=== PATIENT | female | born 1950 | race Caucasian/White ===

== ENCOUNTER → 2017-02-12 | Outpatient (REF) | payer MEDICARE, OTHER ==
[2017-02-12 19:34] LABS: VITAMIN B12 LEVEL 1608 PG/ML
[2017-02-12 19:35] LABS: FOLATE 23.1 NG/ML
[2017-02-12 20:02] LABS: PERCENT SATURATION 41.1 % (13.2-37.4); TOTAL IRON BINDING CAPACITY 185 UG/DL (250-450); TOTAL PROTEIN 6.5 GM/DL (6.4-8.2)
[2017-02-14 11:01] LABS: ALBUMIN % 45.3 % (55.8-66.1)
[2017-02-14 11:02] LABS: ALBUMIN 2.94 GM/DL (3.29-5.55)
== END ==
LOC: M LAB REF 17:33
PROVIDERS: ATTEND Internal Medicine
DX: D64.9 Anemia, unspecified (principal)

== ENCOUNTER → 2017-03-20 | Outpatient (REF) | payer MEDICARE, OTHER ==
[2017-03-20 14:31] LABS: IMMUNOGLOBULIN G 1130 MG/DL (681-1648); IMMUNOGLOBULIN M 186 MG/DL (40-230); TOTAL PROTEIN 6.8 GM/DL (6.4-8.2)
[2017-03-21 13:20] LABS: ALBUMIN 3.94 GM/DL (3.29-5.55); ALBUMIN % 57.9 % (55.8-66.1); GAMMA GLOBULIN % 16.6 % (11.1-18.8)
[2017-03-22 00:06] LABS: BETA 2 MICROGLOBULIN 1.6 mg/L (0.6-2.4); FREE KAPPA LIGHT CHAINS SERUM 19.9 mg/L (3.3-19.4); FREE LAMBDA LIGHT CHAINS SERUM 30.7 mg/L (5.7-26.3); KAPPA/LAMBDA RATIO SERUM 0.65 (0.26-1.65)
== END ==
LOC: M LAB REF 09:05
PROVIDERS: ATTEND Internal Medicine Medical Oncology
DX: D64.9 Anemia, unspecified (principal); D47.2 Monoclonal gammopathy

== ENCOUNTER → 2017-03-29 | Outpatient (CLI) | payer MEDICARE, OTHER ==
--- NOTE | 2017-03-29 12:48 | REP ---
SKELETAL SURVEY: 15 views. HISTORY: Anemia. FINDINGS: AP and lateral views of the skull demonstrate an intact bony calvarium. Bony orbital margins are intact. Visualized paranasal sinuses are clear. Lateral and AP cervical spine views show degenerative spondylosis. No bony destructive lesion or collapse is seen. The degenerative disc disease is present at C3-4, C4-5, C5-6, and C6-7. AP and lateral views of the thoracic spine show intact pedicles and posterior elements. Vertebral body heights are preserved and alignment is normal. Lumbar spine radiographs show degenerative narrowing at L3-4 and L4-5 mild in degree. No other abnormality. AP view of the pelvis shows no bony destructive lesion. AP views of each femur and each humerus are unremarkable. IMPRESSION: No bony destructive lesion seen. Signed by Adrián Harper MD 03/29/2017 02:45 P
== END ==
LOC: M RAD 10:45
PROVIDERS: ATTEND Internal Medicine Medical Oncology
DX: D47.2 Monoclonal gammopathy (principal); D64.9 Anemia, unspecified

== ENCOUNTER → 2017-03-29 | Outpatient (REF) | payer MEDICARE, OTHER | LOC: M LAB REF 12:00 | PROVIDERS: ATTEND Internal Medicine Medical Oncology | DX: D47.2 Monoclonal gammopathy (principal); D64.9 Anemia, unspecified ==

== ENCOUNTER → 2017-06-20 | Outpatient (REF) | payer MEDICARE, OTHER ==
[2017-06-20 13:26] LABS: TOTAL PROTEIN 7.1 GM/DL (6.4-8.2)
[2017-06-21 11:20] LABS: ALBUMIN 3.95 GM/DL (3.29-5.55); ALBUMIN % 55.6 % (55.8-66.1)
[2017-06-22 00:07] LABS: FREE KAPPA LIGHT CHAINS SERUM 18.7 mg/L (3.3-19.4); FREE LAMBDA LIGHT CHAINS SERUM 28.6 mg/L (5.7-26.3); KAPPA/LAMBDA RATIO SERUM 0.65 (0.26-1.65)
== END ==
LOC: M LAB REF 12:15
PROVIDERS: ATTEND Internal Medicine Medical Oncology
DX: D47.2 Monoclonal gammopathy (principal)

== ENCOUNTER 2017-10-17 11:36 | Day surgery (SDC) | payer MEDICARE, OTHER ==
[2017-10-17] MEDS ORDERED: PROPOFOL 200 MG/20 ML VIAL As Ordered (12:25)
== END 2017-10-17 13:07 | disposition home or self-care (01) ==
LOC: M OPP 11:36
DX: Z12.11 Encounter for screening for malignant neoplasm of colon (principal); K64.0 First degree hemorrhoids; E78.5 Hyperlipidemia, unspecified; M06.9 Rheumatoid arthritis, unspecified; R94.5 Abnormal results of liver function studies; Z78.0 Asymptomatic menopausal state; Z79.899 Other long term (current) drug therapy
CPT/HCPCS: G0121

== ENCOUNTER → 2018-04-05 | Outpatient (REF) | payer MEDICARE, OTHER ==
[2018-04-05 15:52] LABS: FOLATE > 24.0 NG/ML
== END ==
LOC: M LAB REF 14:58
DX: D52.8 Other folate deficiency anemias (principal)
CPT/HCPCS: 82746

== ENCOUNTER → 2019-06-28 | Outpatient (CLI) | payer MEDICARE, OTHER ==
[~2019-06-28] MED LIST: ATOR1TAB21 PO; ETAN25SY SC; FOLI1TAB11 PO; METH2.5T48 PO; OCUVCAP2 PO; VENL75CA2 PO; VITA200016 PO
--- NOTE | 2019-06-29 09:30 | REP ---
RIGHT ANKLE COMPLETE: 06/28/2019. CLINICAL HISTORY: Ankle pain. FINDINGS: Four views show an oblique fracture through the distal fibula with a cortex width lateral displacement of the distal fragment; however, the mortise joint remains symmetric and preserved. There is a subtle lucency in the medial talar dome that suggests a possible osteochondral defect. Subtalar joints are intact. There is a small plantar calcaneal spur. No Achilles insertional spur. No tibial fracture. Talonavicular and calcaneocuboid joints and visualized tarsal bones intact. IMPRESSION: 1. A distal fibular fracture with only cortex width lateral displacement of the distal fragment and no disruption of the mortise joint. 2. Possible talar dome osteochondral defect of the medial talus. Electronically Signed by Nolan Flynn MD 06/29/2019 10:18 A
== END ==
LOC: M WUC 09:23
PROVIDERS: ATTEND Physician Assistant
DX: M25.571 Pain in right ankle and joints of right foot (principal)

== ENCOUNTER → 2019-10-15 | Outpatient (CLI) | payer MEDICARE, OTHER ==
[~2019-10-15] MED LIST changes: +E-Z-GAS II EFFERVESCENT PACKET (SODIUM BICARB./CITRIC ACID/SIMETHICONE) As Ordered ONE; +E-Z-HD 98% w/w 340GM SUSP BTL As Ordered ONE; +E-Z-PAQUE 96% w/w SUSP 176GM BTL As Ordered ONE
--- NOTE | 2019-10-15 16:37 | REP ---
UPPER GI AIR CONTRAST AND SMALL BOWEL FOLLOW THROUGH The procedure was performed under the direct supervision of Dr. Harper. The images were reviewed with Dr. Harper The recruitment intern film shows no organomegaly or pathological masses. The intestinal gas pattern is non-specific. Liquid barium and gas producing crystals were given in the erect position as well as liquid barium in the prone oblique position in order to perform a double contrast upper GI examination. Additionally liquid barium was given at the end of the examination in order to perform a small bowel follow through. The oral and pharyngeal stages of deglutition are unremarkable. Esophageal transport is prompt and efficient and there is no esophagitis, stricture, mucosal ring or hiatal hernia. Gastroesophageal reflux is not demonstrated on this examination. The stomach nichols are normally outlined . The rugal folds are smooth and regular. There is no gastritis neoplasm or ulcer disease. The duodenal nichols are normally outlined . The mucosal folds are smooth and regular. There is no duodenitis pancreatitis peptic ulcer disease or neoplasm. The visualized portion of the proximal small bowel appears normal in course and caliber. The barium column was followed through the small bowel to the level of the terminal ileum. Small bowel transit time is approximately 30 minutes . During fluoroscopy gentle palpation shows all loops are freely movable and pliable. There are no fixed or angulated loops. The small bowel mucosal pattern is normal in course and caliber. There is no transition to suggest a partial small-bowel obstruction. Spot filming of the terminal ileum shows it to be unremarkable. Impression: Essentially unremarkable double contrast upper GI and small bowel follow through examination. 2.1 minutes of fluoro time was utilized for this procedure. Electronically Signed by PERCY Aguilera 10/15/2019 04:24 P Electronically Signed by Adrián Harper MD 10/15/2019 04:29 P
== END ==
LOC: M RAD 07:36
PROVIDERS: ATTEND Internal Medicine Gastroenterology
DX: R10.9 Unspecified abdominal pain (principal); R19.7 Diarrhea, unspecified; R11.2 Nausea with vomiting, unspecified; J45.909 Unspecified asthma, uncomplicated

== ENCOUNTER → 2020-10-14 | Outpatient (CLI) | payer MEDICARE, OTHER ==
[~2020-10-14] MED LIST changes: -E-Z-GAS II EFFERVESCENT PACKET (SODIUM BICARB./CITRIC ACID/SIMETHICONE) As Ordered ONE; -E-Z-HD 98% w/w 340GM SUSP BTL As Ordered ONE; -E-Z-PAQUE 96% w/w SUSP 176GM BTL As Ordered ONE
[2020-10-14 16:20] LABS: BASO % 0.5 % (0.0-1.0); EOS # 0.1 10^3/uL (0.0-0.5); EOS % 0.8 % (0.0-3.0); HEMATOCRIT 41.4 % (36.0-47.0); HEMOGLOBIN 13.5 g/dl (12.0-15.5); LYMPH # 2.1 10^3/uL (1.5-5.0); LYMPH % 32.4 % (24.0-44.0); MEAN CORPUSCULAR HGB CONC 32.6 g/dl (32.0-36.5); MEAN CORPUSCULAR VOLUME 107.3 fl (80.0-96.0); MONO # 0.4 10^3/uL (0.0-0.8); MONO % 6.3 % (2.0-8.0); NEUTROPHILS # 3.8 10^3/uL (1.5-8.5); NEUTROPHILS % 59.8 % (36.0-66.0); PLATELET COUNT, AUTOMATED 266 10^3/uL (150-450); RED BLOOD COUNT 3.86 10^6/uL (4.00-5.40); WHITE BLOOD COUNT 6.3 10^3/uL (4.0-10.0)
[2020-10-14 16:52] LABS: ALBUMIN 3.9 GM/DL (3.2-5.2); ALT/SGPT 31 U/L (12-78); C REACTIVE PROTEIN QUANTITATIV < 0.30 MG/DL (0.00-0.30); CREATININE FOR GFR 0.77 MG/DL (0.55-1.30); GLOMERULAR FILTRATION RATE > 60.0 (>45)
[2020-10-14 16:58] LABS: ERYTHROCYTE SEDIMENTATION RATE 14 mm/hr (0-30)
== END ==
LOC: M WUC 11:01
PROVIDERS: ATTEND Nurse Practitioner
DX: M05.79 Rheumatoid arthritis with rheumatoid factor of multiple sites without organ or systems involvement (principal); Z79.899 Other long term (current) drug therapy

== ENCOUNTER → 2021-05-29 | Outpatient (REF) | payer MEDICARE, OTHER | LOC: M LAB REF 19:19 | PROVIDERS: ATTEND Physician Assistant Medical | DX: R50.9 Fever, unspecified (principal) ==

== ENCOUNTER → 2022-06-26 | Outpatient (REF) | payer MEDICARE, OTHER | LOC: M LAB REF 12:40 | PROVIDERS: ATTEND Internal Medicine | DX: R74.8 Abnormal levels of other serum enzymes (principal) ==

== ENCOUNTER → 2022-07-28 | Outpatient (CLI) | payer MEDICARE, OTHER | LOC: M RAD 08:16 | PROVIDERS: ATTEND Internal Medicine | DX: R74.8 Abnormal levels of other serum enzymes (principal) ==

== ENCOUNTER → 2024-06-17 | Outpatient (REF) | payer MEDICARE, OTHER ==
[2024-06-17 12:14] LABS: C REACTIVE PROTEIN QUANTITATIV < 0.40 MG/DL (<1.0)
[2024-06-17 12:20] LABS: FOLATE > 24.00 NG/ML (>5.4)
== END ==
LOC: M LAB REF 11:27
PROVIDERS: ATTEND Internal Medicine
DX: M05.79 Rheumatoid arthritis with rheumatoid factor of multiple sites without organ or systems involvement (principal); D64.9 Anemia, unspecified

== ENCOUNTER → 2025-02-10 | Outpatient (CLI) | payer MEDICARE, OTHER | LOC: M WUC 10:20 | PROVIDERS: ATTEND Physician Assistant | DX: S62.632A Displaced fracture of distal phalanx of right middle finger, initial encounter for closed fracture (principal); X58.XXXA Exposure to other specified factors, initial encounter; Y92.9 Unspecified place or not applicable; Y93.9 Activity, unspecified; Y99.9 Unspecified external cause status ==

== ENCOUNTER → 2025-02-25 | Outpatient (CLI) | payer MEDICARE, OTHER | LOC: M SOG 06:49 | PROVIDERS: ATTEND Physician Assistant | DX: Z53.9 Procedure and treatment not carried out, unspecified reason (principal) ==

== ENCOUNTER → 2025-06-26 | Outpatient (REF) | payer MEDICARE, OTHER | LOC: M LAB REF 12:09 | PROVIDERS: ATTEND Internal Medicine | DX: M05.79 Rheumatoid arthritis with rheumatoid factor of multiple sites without organ or systems involvement (principal); M15.9 Polyosteoarthritis, unspecified ==